=== PATIENT | female | born 1995 | race Caucasian/White ===

== ENCOUNTER 2024-12-16 08:34 | Emergency (ER) | payer OTHER ==
[~2024-12-16] VITALS: Ht 167.6 cm; Wt 104.5 kg
[2024-12-16] MEDS ORDERED: CLON-592 PO (08:42)
[2024-12-16] MEDS ORDERED: 0.9% SODIUM CHLORIDE 10 ML SYRINGE IVP PRN (08:45)
[2024-12-16] MEDS: DEXAMETHASONE SOD PHOS 4 MG/ML VIAL IVP ONE (09:00)
[2024-12-16] MEDS ORDERED: IOHEXOL 350 MG/ML 100 ML VIAL ONE (09:00)
[2024-12-16] MEDS: KETOROLAC TROMETHAMINE 30 MG/ML VIAL IVP ONE (09:00)
[2024-12-16] MEDS: SODIUM CHLORIDE 0.9% 3,000 ML IV ONE (09:01)
[2024-12-16] MEDS: ACETAMINOPHEN 1000 MG/ISO-OSM 100 ML IV ONE (09:01)
[2024-12-16 09:06] LABS: PLATELET COUNT (AUTO) 236 K/uL (150-450); RED BLOOD CELL COUNT(AUTO) 4.60 MIL/uL (4.00-5.20); RED CELL DISTRIBUTION WIDTH 14.5 % (11.5-14.5); WHITE BLOOD COUNT (AUTO) 13.9 K/uL (4.5-11.0)
[2024-12-16 09:09] LABS: CALCIUM, TOTAL 8.8 mg/dL (8.8-10.5); CREATININE 0.90 mg/dL (0.60-1.30); GLOMERULAR FILTR. RATE CALC > 60 mL/min (>60); GLUCOSE,RANDOM 113 mg/dL (70-110); SODIUM SERUM 134 mmol/L (136-145); UREA NITROGEN, BLOOD 8 mg/dL (7-18)
[2024-12-16 09:15] LABS: COVID AG,FIA SOURCE NASAL SWAB
[2024-12-16 09:20] LABS: TROPONIN I-HIGH SENSITIVITY 4 ng/L (<51)
[2024-12-16 09:22] LABS: ASPARTATE AMINOTRANSFERASE 18 U/L (15-37); CREATINE KINASE, TOTAL ONLY 76 U/L (26-192); HCG,QUANTITATIVE < 1 mIU/mL (0-6); TOTAL PROTEIN, SERUM 8.0 g/dL (6.4-8.2)
[2024-12-16 09:32] LABS: RAPID GROUP A STREP NEGATIVE (NEGATIVE)
[2024-12-16 09:32] LABS: LACTIC ACID 0.8 mmol/L (0.4-2.0)
[2024-12-16] MEDS: AMPICILLIN SODIUM/SULBACTAM NA 3 GM in SODIUM CHLORIDE 0.9% 100 ML IV ONE (09:34)
[2024-12-16 09:35] LABS: INFLUENZA TYPE A NEGATIVE FOR TYPE A (NEGATIVE); INFLUENZA TYPE B NEGATIVE FOR TYPE B (NEGATIVE); SARS-COV2 (COVID) ANTIGEN,FIA Negative (Negative)
[2024-12-16 11:41] LABS: APPEARANCE,URINE CLEAR (CLEAR); GLUCOSE, URINE (UA) NEGATIVE (NEGATIVE); LEUKOCYTE ESTERASE ,URINE SMALL (NEGATIVE); NITRATE,URINE NEGATIVE (NEGATIVE); OCCULT BLOOD,URINE NEGATIVE (NEGATIVE); SPECIFIC GRAVITIY, URINE 1.030 (1.003-1.030)
[2024-12-16 11:52] LABS: SQUAMOUS EPITHELIAL CELL,UR Many /LPF (None Seen)
[2024-12-16 12:10] VITALS: PULSE 116; RESP 16; O2SAT 98
[2024-12-16] MEDS: RACEPINEPHRINE HCL 2.25% 0.5 ML NEB SOLUTION NEB ONE (12:17)
[2024-12-16 12:25] VITALS: PULSE 120; RESP 16; O2SAT 98
[2024-12-16 13:15] VITALS: BP 121/71; PULSE 117; RESP 18; TEMP 99.005360; O2SAT 97
[2024-12-18] MEDS ORDERED: METO-408 PO (15:35)
[2024-12-18] MEDS ORDERED: LOSA-382 PO (15:35)
[2024-12-18] MEDS ORDERED: HYDR25TA83 PO (15:35)
[2024-12-18] MEDS ORDERED: LAMO300T2 PO (15:35)
[2024-12-18] MEDS ORDERED: CLON0.5T4 PO (15:35)
[2024-12-18] MEDS ORDERED: AMOX-457 PO (15:35)
[2024-12-18] MEDS ORDERED: DEXA4 PO (15:35)
[2024-12-22] MEDS ORDERED: CEFT2VIA60 IV (13:03)
[2024-12-22] MEDS ORDERED: GUAIF600 PO (13:03)
== END 2024-12-16 13:28 | disposition short-term general hospital (02) ==
LOC: EMS 08:39
DX: J05.10 Acute epiglottitis without obstruction (principal); F41.9 Anxiety disorder, unspecified; R06.02 Shortness of breath; R10.2 Pelvic and perineal pain; Z79.899 Other long term (current) drug therapy; Z20.822 Contact with and (suspected) exposure to COVID-19
CPT/HCPCS: 99291; 96365; 70491; 96375; 71045; 87426; 80048; 80076; 81001; 82550; 83605; 83880; 84484; 84702; 85025; 87040; 87205; 87430; 87804; 36415; 87077; 94640; 93005; 96368; 87184; 84145; J1885; Q9967; J1100; J0295; J7030; J7050; J0131